=== PATIENT | female | born 1950 | race Caucasian/White ===

== ENCOUNTER → 2018-06-18 | Day surgery (SDC) | payer BC ==
[2018-06-15 12:02] LABS: BASOPHILS % 0.2 % (0.0-1.0); EOSINOPHILS # (AUTO) 0.1 (0.0-0.4); EOSINOPHILS % 1.5 % (0.0-6.0); HEMATOCRIT 40.5 % (34.2-44.1); HEMOGLOBIN 13.5 g/dL (12.0-16.0); LYMPHOCYTES # (AUTO) 1.4 (1.0-3.2); LYMPHOCYTES % 31.4 % (18.0-39.1); MEAN CORPUSCULAR HEMOGLOBIN 30.3 pg (28-32); MEAN CORPUSCULAR HGB CONC 33.3 g/dL (31-35); MONOCYTES # (AUTO) 0.5 (0.2-0.8); MONOCYTES % 9.9 % (4.4-11.3); NEUTROPHILS # (AUTO) 2.6 (2.1-6.9); NEUTROPHILS % 56.8 % (38.7-80.0); PLATELET COUNT 222 x10e3/uL (140-360); RED BLOOD COUNT 4.45 x10e6/uL (3.6-5.1); RED CELL DISTRIBUTION WIDTH 13.4 % (11.7-14.4)
[2018-06-15 12:23] LABS: ANION GAP 10.7 mmol/L (8-16); BLOOD UREA NITROGEN 8 mg/dL (7-26); BUN/CREATININE RATIO 10 (6-25); CALCIUM 9.7 mg/dL (8.4-10.2); CARBON DIOXIDE 24 mmol/L (22-29); CHLORIDE 107 mmol/L (98-107); CREATININE, SERUM 0.83 mg/dL (0.57-1.11); EST GLOMERULAR FILTRATION RATE > 60 ML/MIN (60-); GLUCOSE 98 mg/dL (74-118); POTASSIUM 3.7 mmol/L (3.5-5.1); SODIUM 138 mmol/L (136-145)
--- NOTE | 2018-06-15 12:43 | Diagnostic Imaging Report ---
EXAM: CHEST 2 VIEWS, PA and lateral DATE: 06/15/2018 Time stamp on exam: 11:50 AM INDICATION: Preoperative COMPARISON: None FINDINGS: LINES/TUBES: None LUNGS: No consolidations or edema. PLEURA: No effusions or pneumothorax. HEART AND MEDIASTINUM: Normal size and contour. BONES AND SOFT TISSUES: Minimal wedging of one of the lower thoracic spine vertebral bodies. IMPRESSION: No acute thoracic abnormality. Signed by: Dr. Timi Park DO on 06/15/2018 12:40 PM
[~2018-06-18] MED LIST: ASPIR 8181 MG PO; BUPIVACAINE HCL 0.5% 10ML MPF VIAL INJ ONE; BUPIVACAINE HCL 0.5% INJ 30 ML VIAL INJ ONE; CEFAZOLIN SOD 2 GM/D5W 50ML 50 ML IV ONE; CENTRUM SILVER1 EAC3 PO; DEXAMETHASONE SOD PHOS INJ 4 MG/ML VIAL ONE; ESTROVEN MAX400 MCG PO; EVISTA60 MG PO; FENTANYL CITRATE/PF 100MCG/2 ML INJ ONE; KETOROLAC TROMETHAMINE 30 MG/ML VIAL ONE; LIDOCAINE HCL 2% LOCAL INJ 5 ML SDV VIAL INJ ONE; LIPITOR20 MG PO; MIDAZOLAM HCL 2 MG/2 ML VIAL ONE; MUPIROCIN 2% OINT 22 GM TUBE ONE; NIACIN500 M2 PO; OCUVITE TABLET1 EAC1 PO; OMEGA 3 1,0001 EACH PO; ONDANSETRON HCL INJ 2MG/ML 2ML 2 MG/ML VIAL ONE; OSTEO BI-FLEX1 EAC2 PO; PROPOFOL IV EMULSION 10 MG/ML 20 ML VIAL ONE; SEVOFLURANE INHAL SOLN 250 ML PEN BTL ONE; STOOL SOFTENER1 EAC2 PO
--- OUTSIDE RECORDS SUMMARY | 2018-06-18 06:32 | XMS REPORT ---
Author [facility] Address Unknown Phone Unavailable Care Team Providers Care Grey Washer Name Role Phone JORGE FORD Unavailable Unavailable Problems This patient has no known problems. Allergies, Adverse Reactions, Alerts This patient has no known allergies or adverse reactions. Medications This patient has no known medications. Results Test Description Test Time Test Comments Text Results Atomic Results Result Comments CHEST 2 VIEWS 2018-06-15 12:39:00 [place] [address] Patient Name: SANCHEZ LUGO MR #: [id number] : 1950 Age/Sex: 67/F Req #: [id number] Adm Physician: Ordered by: JORGE FORD DPM Report #: [id number] Location: OR Room/Bed: Procedure: [id number] DX/CHEST 2 VIEWS Exam Date: 06/15/18 Exam Time: 1140 REPORT STATUS: Signed EXAM: CHEST 2 VIEWS, PA and lateral DATE: 06/15/[address] amp on exam: 11:50 AM INDICATION: Preoperative COMPARISON: None FINDINGS: LINES/TUBES: None LUNGS: No consolidations or edema. PLEURA: No effusions or pneumothorax. HEART AND MEDIASTINUM: Normal size and contour. BONES AND SOFT TISSUES: Minimal wedging of one of the lower thoracic spine vertebral bodies. IMPRESSION: No acute thoracic abnormality. Signed by: Dr. Latoya Park DO on 06/15/2018 12:40 PM Dictated By: LATOYA PARK DO 1240 Transcribed By: RENETTA on 06/15/18 1240 COPY TO: JORGE FORD DPM
--- OUTSIDE RECORDS SUMMARY | 2018-06-18 06:32 | XMS REPORT | Clinical Summary ---
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 Active niacin (SLO-NIACIN) 500 Take 500 mg 0 mg CR tablet by mouth. Active multivit,iron,minerals/yenni Take by 0 tein (CENTRUM SILVER mouth. ULTRA WOMEN'S ORAL) Active calcium carbonate/vitamin Take by 0 D3 (CALTRATE 600 + D mouth. ORAL) Active aspirin (ECOTRIN) 81 MG Take 81 mg by 0 enteric coated tablet mouth. Active om Take by 0 [id number] mouth. st 500 mg-500 mcg -1 mg-12.5 mg capsule Active Problems Not on file Encounters Care Team Description Date Type Specialty Jorge A Vasquez MD Screening for breast cancer (Primary Dx); Encounter for well woman exam 10/14/2017 Office Visit Obstetrics and Gynecology after 06/17/2017 Family History Medical History Relation Name Comments Lung cancer Father Relation Name Status Comments Father Social History Date Tobacco Use Types Packs/Day Years Used Never Smoker Smokeless Tobacco: Never Used Alcohol Use Drinks/Week oz/Week Comments No Sex Assigned at Date Recorded Not on file Industry Job Start Date Occupation Not on file Not on file Not on file Travel End Travel History Travel Start No recent travel history available. Last Filed Vital Signs Time Taken Vital Sign Reading 10/14/2017 9:48 AM CDT Blood Pressure 146/88 10/14/2017 9:48 AM CDT Pulse 64 10/14/2017 9:48 AM CDT Temperature 36.4 C (97.5 F) - Respiratory Rate - - Oxygen Saturation - - Inhaled Oxygen - Concentration 10/14/2017 9:48 AM CDT Weight 87.4 kg (192 lb 9.6 oz) 10/14/2017 9:48 AM CDT Height 167.6 cm (5' 6") 10/14/2017 9:48 AM CDT Body Mass Index 31.09 Plan of Treatment Health Maintenance Due Date Last Done Comments CERVICAL CANCER SCREENING 1973 BREAST CANCER SCREENING 2002 COLON CANCER SCREENING 2002 SHINGLES VACCINES (#1) 2002 65+ PNEUMOCOCCAL VACCINE 2017 (1 of 2 - PCV13) PNEUMOCOCCAL 2017 POLYSACCHARIDE VACCINE AGE 65 AND OVER INFLUENZA VACCINE 09/23/2018 Procedures Comments Procedure Name Priority Date/Time Associated Diagnosis CHLAMYDIA/N. GONORRHOEAE Routine 10/14/2017 RNA, TMA 10:21 AM CDT HPV MRNA E6/E7 REFLEX Routine 10/14/2017 HPV 16, 18/45 (REFLEX) 10:21 AM CDT THINPREP TIS PAP Routine 10/14/2017 10:21 AM CDT PAP W/AGE BASED SCREENING Routine 10/14/2017 Encounter for well woman PLUS CT/NG 10:21 AM CDT exam after 06/17/2017 Results * HPV mRNA E6/E7 REFLEX HPV 16, 18/45 (10/14/2017 10:21 AM CDT) HPV mRNA e6/e7 Not Detected Not Detected [employer] Comment: [place] This test was performed using the APTIMA HPV Assay ([employer] This assay detects E6/E7 viral messenger RNA (mRNA) from 14 high-risk HPV types (16,18,31,33,35,39,45,51,52,56 ,58,59,66,68). The analytical performance characteristics of this assay have been determined by [employer]. The modifications have not been cleared or approved by the FDA. This assay has been validated pursuant to the CLIA regulations and is used for clinical purposes. Resulting Agency Comment Performing Organization Information: Site ID: [id number] Name: [facility] Address: [address] [place] [address] Director: Rosanna Gutiérrez Performing Organization Address [facility] Phone Number [employer] [place] [address] [place] [phone] * PAP W/AGE BASED SCREENING PLUS CT/NG (10/14/2017 10:21 AM CDT) Comment Comment: [facility] This order for age-based DIAGNOSTICS-SERGIO cervical cancer and STI II screening follows ACOG guidelines(PB 168, 140, THO761). See individual assays for performing site location. Specimen Swab Resulting Agency Comment Performing Organization Information: Site ID: [id number] Name: [facility] Address: [address] [place] [id number] Director: Dr. Trevor España Performing Organization Address [facility] Hospitalcook Phone Number [employer] [place] [address] II * CHLAMYDIA/N. GONORRHOEAE RNA, TMA (10/14/2017 10:21 AM CDT) Chlamydia trachomatis NOT DETECTED NOT DETECTED [facility] DI[facility]STICS RNA, TMA [place] Neisseria gonorrhoeae NOT DETECTED NOT DETECTED Medium DIAGNOSTICS RNA, TMA [place] (Always message) Comment: [employer] This test was performed using [place] the APTIMA COMBO2 Assay ([employer] The analytical performance characteristics of this assay, when used to test SurePath specimens have been determined by [employer]. Resulting Agency Comment Performing Organization Information: Site ID: [id number] Name: [facility] Address: [address] [place] [id number] Director: Rosanna Gutiérrez Performing Organization Address [facility]code Phone Number [employer] [place] [address] [place] [address] * THINPREP TIS PAP (10/14/2017 10:21 AM CDT) Clinical information None given [facility] [place] Date of last menstrual NG' [facility] period [place] Prev. pap: NONE GIVEN [facility] [place] Prev. bx: NONE GIVEN [facility] [place] Source None given [facility] [place] Statement of adequacy Comment: [facility] Satisfactory for evaluation. [place] Endocervical/transformation zone component present. Interpretation/result: Comment: [facility] Negative for intraepithelial GARCIA lesion or malignancy. Atrophic pattern; predominantly parabasal cells Comment Comment: [employer] This Pap test has been [place] evaluated with computer assisted technology. [employer] Superintendent Comment: [employer] PMT, CT(ASCP) [place] CT screening location: [address], [facility] [address] Comment Comment: [employer] EXPLANATORY NOTE: [place] The Pap is a screening test for cervical cancer. It is not a diagnostic test and is subject to false negative and false positive results. It is most reliable when a satisfactory sample, regularly obtained, is submitted with relevant clinical findings and history, and when the Pap result is evaluated along with historic and current clinical information. Resulting Agency Comment Performing Organization Information: Site ID: [id number] Name: [facility] Address: [address] [place] [phone] Director: Rosanna Gutiérrez Performing Organization Address City/State/Zipcode Phone Number NADIA Medium [place] [phone] after 06/17/2017 Insurance Payer Benefit Subscriber ID Type Phone Address Plan / Group BCBS BCBS xxxxxxxxx PPO CHOICE PPO/ALEXANDRA LOTT PPO Advance Directives Patient has advance care planning documents on file. For more information, michele driscoll contact: Sumit Padron [address] [place] [address]
--- NOTE | 2018-06-18 07:20 | NUR ---
SPIRITUAL CARE - Pre-Surgery Assessment: Pt in bed. Pt's at bedside. Pt reported supportive attention from family and friends. Intervention: I provided pastoral presence, hospitality, and sympathetic listening. I acquainted pt with availability of head of digital while hospitalized. Outcome: Pt expressed appreciation for visit. No need for follow up indicated at this time. ISATU Yeboahlain Spiritual Care Department O: [phone] Pager: [phone] ([phone] number calling from)
[2018-06-18 10:50] VITALS: BP 119/71
--- NOTE | 2018-06-18 18:06 | Operative Report ---
DATE OF PROCEDURE: 06/18/2018 SURGEON: Percy Villela DPM PREOPERATIVE DIAGNOSES: 1. Exostosis of the lateral aspect of the hallux interphalangeal joint, left foot. 2. Exostosis of the proximal interphalangeal joint of the 2nd digit medially, left foot. ANESTHESIA: General endotracheal. HEMOSTASIS: Left thigh tourniquet to 350 mmHg. PROCEDURE IN DETAIL: The patient was taken to the operating room in a mildly sedated state and placed upon the operating table in supine position. Following induction of general anesthetic, the left lower extremity was elevated to 60 degrees to exsanguinate before inflating the pneumatic thigh tourniquet to 350 mmHg to create good hemostasis. The left lower extremity was placed upon the operating table prior to performing the following procedure. Procedure #1 is the exostectomy of the hallux, remodeling of the joint at the interphalangeal joint level on the lateral aspect. A linear incision was placed across the dorsal lateral aspect of the interphalangeal joint of the left hallux. Incision was deepened via sharp and blunt dissection down to the level of bony prominence, which was remodeled with oscillating saw and hand rasp. The area was irrigated with copious amounts of sterile saline solution. The area was then closed with 3-0 Vicryl and 4-0 nylon. The remaining hyperkeratotic lesion was debrided on the exterior portion of the foot. Attention was then directed to the medial aspect of the 2nd digit of the left foot. Bony prominence of the proximal interphalangeal joint level was addressed in a similar fashion. A dorsal linear incision was placed and the joint delivered ini the surgical site. The joint was remodeled with oscillating saw and smoothed with rasp. Area irrigated with copious amounts of sterile saline solution. Deep closure was with 3-0 Vicryl and skin closure 4-0 nylon. The area of the head of the proximal phalanx was further remodeled and once again blocked with 0.5 Marcaine and Decadron LA. Release of the pneumatic thigh tourniquet showed a normal hyperemic flush to all digits of the left foot. The patient left the operating room with vital signs stable in apparent satisfactory condition having tolerated both anesthetic and procedure very well. VANESSA Natarajan/JOELL /[id number]
== END | disposition home or self-care (01) ==
LOC: OR 06:15
PROVIDERS: ATTEND Podiatrist Foot Surgery
DX: M77.52 Other enthesopathy of left foot and ankle (principal); Z01.810 Encounter for preprocedural cardiovascular examination; Z01.812 Encounter for preprocedural laboratory examination; Z01.818 Encounter for other preprocedural examination; Z79.82 Long term (current) use of aspirin
CPT/HCPCS: 28108 ×2; 36415; 71046; 80048; 85025; 93005; J0690; J1100; J1885; J2001; J2250; J2405; J2704